=== PATIENT | male | born 1950 | race Caucasian/White ===

== ENCOUNTER 2025-02-14 12:51 | Emergency (ER) | payer MEDICARE ==
[~2025-02-14] VITALS: Ht 177.8 cm; Wt 83.0 kg
[2025-02-14 14:07] VITALS: TEMP 98
[2025-02-14 14:44] LABS: BASOPHILS % 0.4 % (0.0-1.0); EOSINOPHILS % 1.1 % (0.0-6.0); LYMPHOCYTES % 22.5 % (18.0-39.1); MONOCYTES % 6.7 % (4.4-11.3); NEUTROPHILS % 69.1 % (38.7-80.0); RED CELL DISTRIBUTION WIDTH 13.3 % (11.7-14.4)
[2025-02-14 14:59] LABS: INR 0.87
[2025-02-14 15:09] LABS: EST GLOMERULAR FILTRATION RATE 70.0 ML/MIN (>=60)
[2025-02-14] MEDS: SODIUM CHLORIDE 0.9% 1000ML 1,000 ML IV STA (15:16)
[2025-02-14] MEDS ORDERED: IOPAMIDOL 370 MG/ML 100 ML INFUS..BTL INJ ONE (15:18)
[2025-02-14] MEDS ORDERED: SODIUM CHLORIDE 0.9% 100 ML ONE (15:18)
[2025-02-14] MEDS ORDERED: CLOPIDOGREL BISULFATE 300 MG TAB-DO NOT STOCK PO ONE (16:30)
[2025-02-14] MEDS: ASPIRIN 81 MG CHEW TAB PO ONE (16:51)
[2025-02-14 17:00] VITALS: PULSE 62; RESP 16; O2SAT 100
[2025-02-14] MEDS: CLOPIDOGREL BISULFATE 75 MG TAB PO ONE (17:00)
== END 2025-02-14 19:32 | disposition other institution (70) ==
LOC: ER 15:14
DX: R20.0 Anesthesia of skin (principal); I63.331 Cerebral infarction due to thrombosis of right posterior cerebral artery; I63.231 Cerebral infarction due to unspecified occlusion or stenosis of right carotid arteries; I10 Essential (primary) hypertension; E11.65 Type 2 diabetes mellitus with hyperglycemia; Z87.442 Personal history of urinary calculi
CPT/HCPCS: 36415; 70496; 70498; 80053; 83735; 84443; 84484; 85025; 85610; 85730; 93005; 99284; J7030; J7050; Q9967